=== PATIENT | male | born 1965 | race African-American/Black ===

== ENCOUNTER 2017-08-25 21:26 | Emergency (ER) | payer OTHER ==
[2017-08-25 22:25] LABS: Absolute Lymphocytes (CBC) 3.5 K/uL (0.7-4.9); Absolute Monocytes 0.6 K/uL (0.1-1.3); Absolute Neutrophil 2.8 K/uL (1.8-8.0); Basophils % 0.5 % (0-1.3); Eosinophils % 2.4 % (0-4.4); Hematocrit 40.3 % (39.6-49.0); Lymphocytes % 49.6 % (15.3-44.8); MCH 32.3 pg (27.0-35.0); MCV 93.4 fL (80-100); Monocytes % 8.2 % (3.3-12.3); RBC Red Blood Cell Count 4.32 M/uL (4.33-5.43)
[2017-08-25 22:34] LABS: Protime INR 1.03
[2017-08-25] MEDS ORDERED: ONDANSETRON 4 MG/2 ML VIAL ONE (22:34)
[2017-08-25] MEDS ORDERED: MORPHINE 4 MG/ML SYR ONE (22:34)
[2017-08-25 22:37] LABS: Bicarbonate 27 mEq/L (21-31); Glucose Level 112 mg/dL (65-120); Potassium 3.4 mEq/L (3.6-5.0); Sodium Level 140 mEq/L (135-145)
[2017-08-25] MEDS ORDERED: NA CHLORIDE 0.9% 1,000 ML ONE (22:41)
[2017-08-25 22:43] LABS: ALT/SGPT 22 IU/L (10-60); AST/SGOT 18 IU/L (10-42); Albumin 4.2 g/dL (3.2-5.5); Alkaline Phosphatase 51 IU/L (42-121); BUN Blood Urea Nitrogen 11 mg/dL (6-20); Bilirubin Direct < 0.1 mg/dL (0-0.2); Bilirubin Total 0.8 mg/dL (0.3-1.2); Creatine Phosphokinase 202 IU/L (22-269); Magnesium 1.8 mg/dL (1.8-2.5); Protein, Total 7.3 g/dL (6.0-8.3)
[2017-08-25 22:46] LABS: CKMB Creatine Kinase MB 1.2 ng/ml (0.3-4.0)
[2017-08-25 23:01] LABS: Barbiturates NEGATIVE; Benzodiazepines NEGATIVE; Cocaine NEGATIVE; METHAMPHETAM NEGATIVE; Opiates POSITIVE; Phencyclidine NEGATIVE; THC Cannibis NEGATIVE
[2017-08-25 23:13] LABS: Urine Blood NEGATIVE (NEG); Urine Glucose NEGATIVE (NEG); Urine Protein NEGATIVE (NEG)
[2017-08-26] MEDS ORDERED: POTASSIUM CL SA 10 MEQ TAB PO ONE (00:42)
--- NOTE | 2017-08-26 01:19 | EDPHYS ---
Physician Documentation [facility] Name: Ross Mckeon Age: 51 yrs Sex: Male : 1965 Arrival Date: 08/25/2017 Time: 21:27 Bed 26 Private MD: ED Physician Gamal Delacruz HPI: 08/25 22:04 This 51 yrs old Black Male presents to ER via Ambulatory with complaints of Chest Pain, pkl High Blood Pressure. 22:04 The patient or guardian reports chest pain that is located primarily in the left side pkl chest. Onset: just prior to arrival, 2 hour(s) ago. The pain radiates to the left arm, left neck. Associated signs and symptoms: The patient has no apparent associated signs or symptoms. The chest pain is described as sharp. The patient has not experienced similar symptoms in the past. Historical: - Allergies: 21:45 Soma; rk2 21:45 Suboxone; rk2 21:45 Lodine; rk2 21:45 Dilantin; rk2 - PMHx: 21:45 Seizures; Spinal Stimulator; Hypertension; rk2 - Immunization history:: Pneumococcal vaccine is not up to date, Flu vaccine is up to date. - Social history:: Smoking status: Patient uses tobacco products, smokes one-half pack cigarettes per day. ROS: 22:04 Eyes: Negative for injury, pain, redness, and discharge, ENT: Negative for injury, pkl pain, and discharge, Neck: Negative for injury, pain, and swelling. 22:04 Cardiovascular: Positive for chest pain. 22:04 Respiratory: Negative for cough, shortness of breath. 22:04 Abdomen/GI: Negative for abdominal pain, nausea, vomiting, and diarrhea. 22:04 Back: Negative for acute changes. 22:04 : Negative for urinary symptoms. 22:04 MS/extremity: Negative for acute changes. 22:04 Skin: Negative for rash. 22:04 Neuro: Negative for altered mental status. Exam: 22:04 Head/Face: Normocephalic, atraumatic. Eyes: Pupils equal round and reactive to light, pkl extra-ocular motions intact. Lids and lashes normal. Conjunctiva and sclera are non-icteric and not injected. Cornea within normal limits. Periorbital areas with no swelling, redness, or edema. ENT: Nares patent. No nasal discharge, no septal abnormalities noted. Tympanic membranes are normal and external auditory canals are clear. Oropharynx with no redness, swelling, or masses, exudates, or evidence of obstruction, uvula midline. Mucous membranes moist. Neck: Trachea midline, no thyromegaly or masses palpated, and no cervical lymphadenopathy. Supple, full range of motion without nuchal rigidity, or vertebral point tenderness. No Meningismus. Chest/axilla: Normal chest wall appearance and motion. Nontender with no deformity. No lesions are appreciated. Cardiovascular: Regular rate and rhythm with a normal S1 and S2. No gallops, murmurs, or rubs. Normal PMI, no JVD. No pulse deficits. Respiratory: Lungs have equal breath sounds bilaterally, clear to auscultation and percussion. No rales, rhonchi or wheezes noted. No increased work of breathing, no retractions or nasal flaring. Abdomen/GI: Soft, non-tender, with normal bowel sounds. No distension or tympany. No guarding or rebound. No evidence of tenderness throughout. Back: No spinal tenderness. No costovertebral tenderness. Full range of motion. Skin: Warm, dry with normal turgor. Normal color with no rashes, no lesions, and no evidence of cellulitis. MS/ Extremity: Pulses equal, no cyanosis. Neurovascular intact. Full, normal range of motion. Neuro: Awake and alert, GCS 15, oriented to person, place, time, and situation. Cranial nerves II-XII grossly intact. Motor strength 5/5 in all extremities. Sensory grossly intact. Cerebellar exam normal. Normal gait. Vital Signs: 21:45 BP 145 / 99; Pulse 83; Resp 17; Temp 98.0; Pulse Ox 98% ; Weight 90.72 kg; Height 6 ft. rk2 4 in. (193.04 cm); 23:15 BP 135 / 88; Pulse 70; Resp 17; Pulse Ox 98% on R/A; kr2 23:34 BP 131 / 86; Pulse 71; Resp 17; Pulse Ox 99% on R/A; kr2 08/26 01:18 BP 128 / 82; Pulse 60; Resp 15; Pulse Ox 99% on R/A; kr2 08/25 21:45 Body Mass Index 24.34 (90.72 kg, 193.04 cm) rk2 MDM: 08/25 21:33 Patient medically screened. pkl 08/26 00:20 Data reviewed: vital signs, nurses notes, lab test result(s), EKG, radiologic studies, pkl plain films. 08/25 22:01 Order name: Basic Metabolic Panel pkl 08/25 22:01 Order name: BNP pkl 08/25 22:01 Order name: CBC with Diff pkl 08/25 22:01 Order name: Ckmb pkl 08/25 22:01 Order name: CPK pkl 08/25 22:01 Order name: LFT's pkl 08/25 22:01 Order name: Magnesium pkl 08/25 22:01 Order name: PT-INR pkl 08/25 22:01 Order name: Ptt, Activated pkl 08/25 22:01 Order name: Troponin (emerg Dept Use Only) pkl 08/25 22:01 Order name: UDS pkl 08/25 22:37 Order name: Basic Metabolic Panel; Complete Time: 00:20 EDMS 08/25 22:42 Order name: Protime (+INR); Complete Time: 00:20 EDMS 08/25 22:42 Order name: PTT, Activated Partial Thromb; Complete Time: 00:20 EDMS 08/25 22:01 Order name: XRAY Chest (1 view) pkl 08/25 22:43 Order name: CBC with Automated Diff; Complete Time: 00:20 EDMS 08/25 22:43 Order name: Liver (Hepatic) Function; Complete Time: 00:20 EDMS 08/25 22:43 Order name: Creatine Phosphokinase; Complete Time: 00:20 EDMS 08/25 22:43 Order name: Magnesium; Complete Time: 00:20 EDMS 08/25 22:43 Order name: Troponin (Emerg Dept Use Only); Complete Time: 00:20 EDMS 08/25 22:47 Order name: CKMB Creatine Kinase MB; Complete Time: 00:20 EDMS 08/25 22:47 Order name: BNP B-Type Natriuretic Peptide; Complete Time: 00:20 EDMS 08/25 22:50 Order name: Urine Dipstick--Ancillary (enter results) em1 08/25 23:01 Order name: Urine Drug Screen; Complete Time: 00:20 EDMS 08/25 23:13 Order name: Urine Dipstick-Ancillary; Complete Time: 00:20 EDMS 08/26 00:21 Order name: Troponin (emerg Dept Use Only) pkl 08/26 01:03 Order name: Troponin (Emerg Dept Use Only); Complete Time: 01:06 EDMS 08/25 22:01 Order name: EKG; Complete Time: 22:02 pkl 08/25 22:01 Order name: Cardiac monitoring; Complete Time: 22:43 pkl 08/25 22:01 Order name: EKG - Nurse/Tech; Complete Time: :43 pkl 08/25 22:01 Order name: IV Saline Lock; Complete Time: :43 pkl 08/25 22:01 Order name: Labs collected and sent; Complete Time: : pkl 08/25 22:01 Order name: O2 Per Protocol; Complete Time: :43 pkl 08/25 22:01 Order name: O2 Sat Monitoring; Complete Time: :43 pkl 08/25 22:01 Order name: Urine Dipstick-Ancillary (obtain specimen); Complete Time: 22:49 pkl 08/26 00:21 Order name: EKG; Complete Time: 00:21 pkl Administered Medications: 08/25 22:25 Drug: morphine 2 mg Route: IVP; Site: right antecubital; kr2 08/26 01:26 Follow up: Response: No adverse reaction; Pain is decreased kr2 08/25 22:25 Drug: Zofran 4 mg Route: IVP; Site: right antecubital; kr2 08/26 01:26 Follow up: Response: No adverse reaction kr2 08/25 22:27 Drug: NS 0.9% 1000 ml Route: IV; Rate: 100 ml/hr; Site: right antecubital; kr2 08/26 01:24 Follow up: Response: No adverse reaction; IV Status: Order to discontinue infusion kr2 : Drug: K-Dur 20 mEq Route: PO; kr2 :25 Follow up: Response: No adverse reaction kr2 Disposition: 08/26/17 01:18 Discharged to Home. Impression: Chest pain. - Condition is Stable. - Medication Reconciliation Form, Thank You Letter, Antibiotic Education, Prescription Opioid Use form. - Follow up: Private Physician; When: 2 - 3 days; Reason: Re-evaluation by your physician. - Problem is new. - Symptoms have improved. Signatures: Dispatcher [employer] Gamal Brumfield MD MD pkBernadine Shirley RN RN kr2 Phuong Mendez RN RN rk2
--- NOTE | 2017-08-26 01:19 | ER ---
Nurse's Notes [facility] Name: Ross Mckeon Age: 51 yrs Sex: Male : 1965 Arrival Date: 08/25/2017 Time: 21:27 Bed 26 Private MD: Diagnosis: Chest pain Presentation: 08/25 21:39 Presenting complaint: Patient states: Pt. c/o sudden onset of sharp left sided c/p. rk2 Onset around 1930 tonight. Pain radiates into back and into left side of neck. Onset while \T\ rest. Increased pain with deep inspiration. Denies SOB. Hx of HTN, non compliment with medication. Transition of care: patient was not received from another setting of care. Onset of symptoms was August 25, 2017. Care prior to arrival: None. 21:39 Method Of Arrival: Ambulatory rk2 21:39 Acuity: HELENE 3 rk2 Triage Assessment: 21:45 General: Appears uncomfortable, well groomed, well developed, well nourished, Behavior rk2 is calm, cooperative. Pain: Complains of pain in chest. Neuro: Level of Consciousness is alert, obeys commands, Oriented to person, place, time, situation. Cardiovascular: Rhythm is sinus rhythm. Respiratory: Airway is patent Respiratory effort is even, unlabored, Respiratory pattern is regular, symmetrical. Derm: Skin is pink, warm \T\ dry. Historical: - Allergies: 21:45 Soma; rk2 21:45 Suboxone; rk2 21:45 Lodine; rk2 21:45 Dilantin; rk2 - PMHx: 21:45 Seizures; Spinal Stimulator; Hypertension; rk2 - Immunization history:: Pneumococcal vaccine is not up to date, Flu vaccine is up to date. - Social history:: Smoking status: Patient uses tobacco products, smokes one-half pack cigarettes per day. Screenin:45 Abuse screen: Denies threats or abuse. Denies injuries from another. Nutritional kr2 screening: No deficits noted. Tuberculosis screening: No symptoms or risk factors identified. Fall Risk None identified. Assessment: 21:45 General: Appears in no apparent distress. uncomfortable, slender, well groomed, well kr2 developed, well nourished, Behavior is calm, cooperative, appropriate for age. Pain: Complains of pain in chest Pain does not radiate. Pain currently is 8 out of 10 on a pain scale. Quality of pain is described as pressure, sharp, stabbing, Pain began suddenly, Is continuous. Neuro: Level of Consciousness is awake, alert, obeys commands, Oriented to person, place, time, situation, Appropriate for age. Cardiovascular: Capillary refill < 3 seconds in bilateral fingers Patient's skin is warm and dry. Respiratory: Airway is patent Respiratory effort is even, unlabored, Respiratory pattern is regular, symmetrical. GI: Abdomen is flat, non-distended. : No signs and/or symptoms were reported regarding the genitourinary system. EENT: Oral mucosa is moist. Derm: Skin is intact, is healthy with good turgor, Skin is pink, warm \T\ dry. Musculoskeletal: Circulation, motion, and sensation intact. 23:35 Reassessment: Patient appears in no apparent distress at this time. Patient and/or kr2 family updated on plan of care and expected duration. Pain level reassessed. Patient is alert, oriented x 3, equal unlabored respirations, skin warm/dry/pink. Patient denies pain at this time. Patient states feeling better. 08/26 00:00 Reassessment: Patient appears in no apparent distress at this time. Patient and/or kr2 family updated on plan of care and expected duration. Pain level reassessed. Patient is alert, oriented x 3, equal unlabored respirations, skin warm/dry/pink. Patient states feeling better. Vital Signs: 08/25 21:45 BP 145 / 99; Pulse 83; Resp 17; Temp 98.0; Pulse Ox 98% ; Weight 90.72 kg; Height 6 ft. rk2 4 in. (193.04 cm); 23:15 BP 135 / 88; Pulse 70; Resp 17; Pulse Ox 98% on R/A; kr2 23:34 BP 131 / 86; Pulse 71; Resp 17; Pulse Ox 99% on R/A; kr2 08/26 01:18 BP 128 / 82; Pulse 60; Resp 15; Pulse Ox 99% on R/A; kr2 08/25 21:45 Body Mass Index 24.34 (90.72 kg, 193.04 cm) rk2 ED Course: 08/25 21:27 Patient arrived in ED. al2 21:33 Gamal Delacruz MD is Attending Physician. pkl 21:35 Patient has correct armband on for positive identification. Bed in low position. Call kr2 light in reach. Side rails up X2. Adult w/ patient. travel freight and passenger agent on. Pulse ox on. NIBP on. Door closed. Warm blanket given. Head of bed elevated. 21:43 Triage completed. rk2 21:45 Arm band placed on. kr2 21:47 Bernadine Holliday, RN is Primary Nurse. kr2 21:47 Inserted saline lock: 22 gauge in right antecubital area, using aseptic technique. kr2 Blood collected. Patient maintains SpO2 saturation greater than 95% on room air. 22:20 EKG done, by ED staff, reviewed by Gamal Delacruz MD. dh3 22:24 X-ray completed. Portable x-ray completed in exam room. Patient tolerated procedure kp1 well. 22:45 Urine collected: urinal, clear. 3 08/26 01:00 XRAY Chest (1 view) In Process Unspecified. EDMS 01:17 EKG done, reviewed by Gamal Delacruz MD. kr2 01:24 No provider procedures requiring assistance completed. IV discontinued, intact, kr2 bleeding controlled, No redness/swelling at site. Pressure dressing applied. Administered Medications: 08/25 22:25 Drug: morphine 2 mg Route: IVP; Site: right antecubital; kr2 08/26 01:26 Follow up: Response: No adverse reaction; Pain is decreased kr2 08/25 22:25 Drug: Zofran 4 mg Route: IVP; Site: right antecubital; kr2 08/26 01:26 Follow up: Response: No adverse reaction kr2 08/25 22:27 Drug: NS 0.9% 1000 ml Route: IV; Rate: 100 ml/hr; Site: right antecubital; kr2 08/26 01:24 Follow up: Response: No adverse reaction; IV Status: Order to discontinue infusion kr2 :27 Drug: K-Dur 20 mEq Route: PO; kr2 01:25 Follow up: Response: No adverse reaction kr2 Outcome: 01:18 Discharge ordered by . [email or web address] 01:24 Discharged to home ambulatory, with family. kr2 01:24 Condition: improved 01:24 Discharge instructions given to patient, Instructed on discharge instructions, follow up and referral plans. Demonstrated understanding of instructions, follow-up care. 01:26 Patient left the ED. kr2 Signatures: Dispatcher [employer] Gamal Brumfield MD MD pkl Silva Abdul kp1 Nadine Ramirez 3 Bernadine Holliday RN RN kr2 Brenda Power Rhonda, RN RN rk2
--- NOTE | 2017-08-26 05:01 | EKG ---
Test Date: 2017-08-26 Test Time: 01:15:33 Medical Imaging Specialist: HEIDY MEASUREMENT RESULTS: Intervals: Rate: 62 MS: 150 QRSD: 74 QT: 410 QTc: 416 [place]: P: 59 MS: 150 QRS: 83 T: 47 INTERPRETIVE STATEMENTS: Normal sinus rhythm Possible Left atrial enlargement Nonspecific ST and T wave abnormality Abnormal ECG Compared to ECG 08/25/2017 21:39:23 ST (T wave) deviation now present T-wave abnormality no longer present Electronically Signed On 08-26-17 05:00:48 CDT by Cam Valenzuela
--- NOTE | 2017-08-26 05:02 | EKG ---
Test Date: 2017-08-25 Test Time: 21:39:23 Snow Removal/Plowing: CHAI MEASUREMENT RESULTS: Intervals: Rate: 76 SC: 142 QRSD: 78 QT: 382 QTc: 429 [place]: P: 60 SC: 142 QRS: 79 T: 11 INTERPRETIVE STATEMENTS: Normal sinus rhythm Possible Left atrial enlargement Nonspecific T wave abnormality Abnormal ECG Compared to ECG 04/15/2017 21:31:43 No significant changes Electronically Signed On 08-26-17 05:01:42 CDT by Cam Valenzuela
--- NOTE | 2017-08-26 08:03 | RAD REPORT ---
EXAM DESCRIPTION: RAD - Chest Single View - 08/25/2017 10:25 pm CLINICAL HISTORY: Left-sided chest pain COMPARISON: April 2017 TECHNIQUE: AP portable chest image was obtained 2214 hours . FINDINGS: No focal mass, consolidation or failure. Lung markings are minimally prominent, similar to the prior study. Heart and vasculature are normal. No measurable pleural effusion and no pneumothora x. No gross bony abnormality seen. No acute aortic findings suspected. IMPRESSION: No acute cardiopulmonary process. No significant change from the comparison study.
== END 2017-08-26 01:26 | disposition home or self-care (01) ==
LOC: ER 21:26
DX: R07.9 Chest pain, unspecified (principal); I10 Essential (primary) hypertension; F17.210 Nicotine dependence, cigarettes, uncomplicated; Z88.5 Allergy status to narcotic agent; Z88.6 Allergy status to analgesic agent; Z88.8 Allergy status to other drugs, medicaments and biological substances
CPT/HCPCS: 36415; 71045; 80048; 80076; 80307; 81003; 82550; 82553; 83735; 83880; 84484; 85025; 85610; 85730; 93005; 96361; 96374; 96375; 99285; J2405; J7030

== ENCOUNTER 2017-11-19 17:50 | Emergency (ER) | payer OTHER ==
[2017-11-19] MEDS ORDERED: HYDROCODONE/APAP 10/325 TAB ONE (18:37)
--- NOTE | 2017-11-19 19:17 | RAD REPORT ---
EXAM DESCRIPTION: CT - Head Brain Wo Cont - 11/19/2017 7:02 pm CLINICAL HISTORY: Head injury status post fall COMPARISON: None. TECHNIQUE: Computed axial tomography of the head was obtained. IV contrast was not requested. All CT scans are performed using dose optimization technique as appropriate and may include automated exposure control or mA/KV adjustment according to patient size. FINDINGS: An intracranial bleed is not seen . The ventricles are normal in caliber. No extra-axial fluid collection is noted. Fluid within the sinuses/ mastoids is not seen. IMPRESSION: No acute intracranial abnormality is seen.
--- NOTE | 2017-11-19 19:22 | RAD REPORT ---
EXAM DESCRIPTION: RAD - Hip Right 2 View - 11/19/2017 6:51 pm CLINICAL HISTORY: Right hip pain FINDINGS: No fracture or dislocation is seen.
--- NOTE | 2017-11-19 19:23 | RAD REPORT ---
EXAM DESCRIPTION: RAD - Hip Left 2 View - 11/19/2017 6:51 pm CLINICAL HISTORY: Left hip pain status post injury FINDINGS: No fracture or dislocation is seen.
--- NOTE | 2017-11-19 19:24 | RAD REPORT ---
EXAM DESCRIPTION: RAD - Elbow Left 2 View - 11/19/2017 6:59 pm CLINICAL HISTORY: Left elbow pain status fall. FINDINGS: No fracture or dislocation is seen.
--- NOTE | 2017-11-19 19:24 | RAD REPORT ---
EXAM DESCRIPTION: RAD - Elbow Right 2 View - 11/19/2017 6:59 pm CLINICAL HISTORY: Right elbow pain status post fall FINDINGS: No fracture or dislocation is seen.
--- NOTE | 2017-11-19 19:38 | ER ---
Nurse's Notes [facility] Name: Ross Mckeon Age: 52 yrs Sex: Male : 1965 Arrival Date: 11/19/2017 Time: 17:52 Bed 28 Private MD: Out, [facility] Diagnosis: Contusion of left elbow;Contusion of right elbow;Pain in left hip;Pain in right hip Presentation: 11/19 17:55 Presenting complaint: Patient states: "I tripped and fell the RV steps and hurt both of aa5 my shoulders and hit my head on the metal steps". Denies LOC. Pt c/o pain to jonelle shoulders, jonelle elbows, and jonelle hips. Care prior to arrival: None. Mechanism of Injury: Fall. Trauma event details: Injury occurred: November 19, 2017. 17:55 Acuity: HELENE 4 aa5 17:55 Method Of Arrival: [facility] 19:11 Transition of care: patient was not received from another setting of care. Onset of rk2 symptoms was November 19, 2017. Risk Assessment: Do you want to hurt yourself or someone else? Patient reports no desire to harm self or others. Initial Sepsis Screen: Does the patient meet any 2 criteria? No. Patient's initial sepsis screen is negative. Does the patient have a suspected source of infection? No. Patient's initial sepsis screen is negative. Triage Assessment: 19:08 General: Appears in no apparent distress. slender, well groomed, well developed, well rk2 nourished, Behavior is calm, cooperative. Pain:. Neuro: Level of Consciousness is alert, obeys commands, Oriented to person, place, time, situation. Respiratory: Airway is patent Respiratory effort is even, unlabored, Respiratory pattern is regular, symmetrical. Derm: Skin is pink, warm \\T\\ dry. Historical: - Allergies: 17:57 Dilantin; aa5 17:57 Lodine; aa5 17:57 Soma; aa5 17:57 Suboxone; aa5 - PMHx: 17:57 Hypertension; Seizures; Spinal Stimulator; aa5 - Immunization history:: Adult Immunizations up to date. - Social history:: Smoking status: Patient uses tobacco products, smokes one-half pack cigarettes per day. - Ebola Screening: : No symptoms or risks identified at this time. - Family history:: not pertinent. - Hospitalizations: : No recent hospitalization is reported. Screenin:07 Abuse screen: Denies threats or abuse. Nutritional screening: No deficits noted. rk2 Tuberculosis screening: No symptoms or risk factors identified. Fall Risk None identified. Assessment: 19:06 Reassessment: Returned from radiology. rk2 Vital Signs: 17:57 BP 126 / 91; Pulse 97; Resp 16 S; Temp 97.9(TE); Pulse Ox 97% on R/A; Weight 91.63 kg aa5 (R); Height 6 ft. 4 in. (193.04 cm) (R); Pain 9/10; 17:57 Body Mass Index 24.59 (91.63 kg, 193.04 cm) aa5 ED Course: 17:52 Patient arrived in ED. sb2 17:53 Out, [facility] is Private Physician. sb2 17:57 Triage completed. aa5 17:57 Arm band placed on. aa5 17:59 Phuong Mendez RN is Primary Nurse. rk2 18:09 Elijah Hagan MD is Attending Physician. rn 18:32 XRAY Hip RIGHT 2 view Sent. rk2 18:32 XRAY Hip LEFT 2 view Sent. rk2 18:32 XRAY Elbow RIGHT 2 view Sent. rk2 18:32 XRAY Elbow LEFT 2 view Sent. rk2 18:32 CT Head Brain wo Cont Sent. rk2 18:37 Patient moved to radiology via wheelchair. kc2 18:50 X-ray completed. Patient tolerated procedure well. Patient moved to CT via wheelchair. kc2 18:51 XRAY Elbow LEFT 2 view In Process Unspecified. EDMS 18:52 XRAY Elbow RIGHT 2 view In Process Unspecified. EDMS 18:52 XRAY Hip LEFT 2 view In Process Unspecified. EDMS 18:52 XRAY Hip RIGHT 2 view In Process Unspecified. EDMS 19:[address] kw1 19:02 CT Head Brain wo Cont In Process Unspecified. EDMS 19:07 Patient has correct armband on for positive identification. Bed in low position. Call rk2 light in reach. 19:48 No provider procedures requiring assistance completed. Patient did not have IV access rk2 during this emergency room visit. Administered Medications: 19:25 Drug: [place] 10 mg-325 mg 1 tabs Route: PO; rk2 19:47 Follow up: Response: No adverse reaction rk2 Outcome: 19:37 Discharge ordered by . rn 19:48 Discharged to home ambulatory. rk2 19:48 Condition: good 19:48 Discharge instructions given to patient. 19:49 Patient left the ED. rk2 Signatures: Dispatcher [employer] EDMS Elijah Hagan MD MD rn Calderon, RADHA Ruelas RN [id number] Tabitha Phillips kc2 Monica Donovan kw1 Phuong Mendez RN RN rk2 Lilian Sosa sb2
--- NOTE | 2017-11-19 19:38 | EDPHYS ---
Physician Documentation [facility] Name: Ross Mckeon Age: 52 yrs Sex: Male : 1965 Arrival Date: 11/19/2017 Time: 17:52 Bed 28 Private MD: Out, [facility] ED Physician Elijah Hagan HPI: 11/19 18:47 This 52 yrs old Black Male presents to ER via Ambulatory with complaints of Fall Injury.rn 18:47 Details of fall: The patient fell from a height, down approximately 3 stairs. Onset: rn The symptoms/episode began/occurred just prior to arrival. Associated injuries: The patient sustained elbows and hips. Severity of symptoms: At their worst the symptoms were mild, in the emergency department the symptoms are unchanged. The patient has not experienced similar symptoms in the past. Reports accidentally slipped down steps from RV, doesn't recall hitting head but has slight headache, reports more pain in elbows and hips, no LOC, went to CT clinic who evaluated him and sent him here for ct head. Ambulatory. . Historical: - Allergies: 17:57 Dilantin; aa5 17:57 Lodine; aa5 17:57 Soma; aa5 17:57 Suboxone; aa5 - PMHx: 17:57 Hypertension; Seizures; Spinal Stimulator; aa5 - Immunization history:: Adult Immunizations up to date. - Social history:: Smoking status: Patient uses tobacco products, smokes one-half pack cigarettes per day. - Ebola Screening: : No symptoms or risks identified at this time. - Family history:: not pertinent. - Hospitalizations: : No recent hospitalization is reported. ROS: 18:47 Constitutional: Negative for fever, chills, and weight loss, Eyes: Negative for injury, rn pain, redness, and discharge, Neck: Negative for injury, pain, and swelling, Cardiovascular: Negative for chest pain, palpitations, and edema, Respiratory: Negative for shortness of breath, cough, wheezing, and pleuritic chest pain, Abdomen/GI: Negative for abdominal pain, nausea, vomiting, diarrhea, and constipation, MS/Extremity: + injury and pain to elbows and hips Skin: Negative for injury, rash, and discoloration, Neuro: Negative for weakness, numbness, tingling, and seizure. Exam: 18:47 Constitutional: This is a well developed, well nourished patient who is awake, alert, rn and in no acute distress. Head/Face: Normocephalic, atraumatic. Eyes: Pupils equal round and reactive to light, extra-ocular motions intact. Lids and lashes normal. Conjunctiva and sclera are non-icteric and not injected. Cornea within normal limits. Periorbital areas with no swelling, redness, or edema. Neck: Trachea midline, no thyromegaly or masses palpated, and no cervical lymphadenopathy. Supple, full range of motion without nuchal rigidity, or vertebral point tenderness. No Meningismus. Chest/axilla: Normal chest wall appearance and motion. Nontender with no deformity. No lesions are appreciated. Abdomen/GI: Soft, non-tender, with normal bowel sounds. No distension or tympany. No guarding or rebound. No evidence of tenderness throughout. Back: No spinal tenderness. No costovertebral tenderness. Full range of motion. MS/ Extremity: Pulses equal, no cyanosis. Neurovascular intact. Full, normal range of motion. Equal circumference. Able to undress himself with injured arms, mild abrasions to right elbow, no bleeding. Ambulatory. Neuro: Awake and alert, GCS 15, oriented to person, place, time, and situation. Cranial nerves II-XII grossly intact. Motor strength 5/5 in all extremities. Sensory grossly intact. Cerebellar exam normal. Normal gait. Vital Signs: 17:57 BP 126 / 91; Pulse 97; Resp 16 S; Temp 97.9(TE); Pulse Ox 97% on R/A; Weight 91.63 kg aa5 (R); Height 6 ft. 4 in. (193.04 cm) (R); Pain 9/10; 17:57 Body Mass Index 24.59 (91.63 kg, 193.04 cm) aa5 MDM: 18:09 Patient medically screened. rn 19:36 Differential diagnosis: abrasion, closed head injury, contusion, fracture, sprain, rn strain. Data reviewed: vital signs, nurses notes, radiologic studies, CT scan, plain films, and as a result, I will discharge patient. Counseling: I had a detailed discussion with the patient and/or guardian regarding: the historical points, exam findings, and any diagnostic results supporting the discharge/admit diagnosis. 19:36 Special discussion: I discussed with the patient/guardian in detail that at this point rn there is no indication for admission to the hospital. It is understood, however, that if the symptoms persist or worsen the patient needs to return immediately for re-evaluation. 11/19 18:16 Order name: CT Head Brain wo Cont; Complete Time: 19:36 rn 11/19 18:16 Order name: XRAY Elbow LEFT 2 view; Complete Time: 19:36 rn 11/19 18:16 Order name: XRAY Elbow RIGHT 2 view; Complete Time: 19:36 rn 11/19 18:16 Order name: XRAY Hip LEFT 2 view; Complete Time: 19:36 rn 11/19 18:16 Order name: XRAY Hip RIGHT 2 view; Complete Time: 19:36 rn Administered Medications: 19:25 Drug: [place] 10 mg-325 mg 1 tabs Route: PO; rk2 19:47 Follow up: Response: No adverse reaction rk2 Disposition: 11/19/17 19:37 Discharged to Home. Impression: Contusion of left elbow, Contusion of right elbow, Pain in left hip, Pain in right hip. - Condition is Stable. - Discharge Instructions: Arthralgia, Musculoskeletal Pain, Elbow Contusion, Hip Pain. - Medication Reconciliation Form, Thank You Letter, Antibiotic Education, Prescription Opioid Use form. - Follow up: Private Physician; When: As needed; Reason: Recheck today's complaints, Re-evaluation by your physician. - Problem is new. - Symptoms have improved. Signatures: Dispatcher [employer] EDMS Elijah Hagan MD MD rn Calderon, Audri, RN RN aa5 Phuong Mendez RN RN rk2 Corrections: (The following items were deleted from the chart) 19:49 19:37 11/19/2017 19:37 Discharged to Home. Impression: Contusion of left elbow; rk2 Contusion of right elbow; Pain in left hip; Pain in right hip. Condition is Stable. Forms are Medication Reconciliation Form, Thank You Letter, Antibiotic Education, Prescription Opioid Use. Follow up: Private Physician; When: As needed; Reason: Recheck today's complaints, Re-evaluation by your physician. Problem is new. Symptoms have improved. rn
== END 2017-11-19 19:49 | disposition home or self-care (01) ==
LOC: ER 17:50
DX: S50.02XA Contusion of left elbow, initial encounter (principal); S50.01XA Contusion of right elbow, initial encounter; M25.552 Pain in left hip; M25.551 Pain in right hip; W10.9XXA Fall (on) (from) unspecified stairs and steps, initial encounter; Y93.89 Activity, other specified; Y92.9 Unspecified place or not applicable; Z88.5 Allergy status to narcotic agent; Z88.8 Allergy status to other drugs, medicaments and biological substances; I10 Essential (primary) hypertension; F17.210 Nicotine dependence, cigarettes, uncomplicated
CPT/HCPCS: 70450; 99284

== ENCOUNTER 2020-02-22 23:41 | Observation (INO) | payer OTHER ==
[2020-02-23 00:18] LABS: Protime INR 0.91
[2020-02-23 00:23] LABS: Absolute Lymphocytes (CBC) 3.6 K/uL (0.7-4.9); Basophils % 1.5 % (0-1.3); Hematocrit 37.4 % (39.6-49.0); Lymphocytes % 51.4 % (15.3-44.8); MPV 9.4 fL (7.6-11.3); RBC Red Blood Cell Count 4.02 M/uL (4.33-5.43)
[2020-02-23 00:32] LABS: ALT/SGPT 46 U/L (12-78); AST/SGOT 30 U/L (15-37); Albumin 3.6 g/dL (3.4-5.0); Alkaline Phosphatase 66 U/L (45-117); BUN Blood Urea Nitrogen 10 mg/dL (7-18); Bicarbonate 28 mmol/L (21-32); Bilirubin Direct < 0.1 mg/dL (0-0.2); Bilirubin Total 0.3 mg/dL (0.2-1.0); Glucose Level 122 mg/dL (74-106); Magnesium 1.5 mg/dL (1.8-2.4); Potassium 3.5 mmol/L (3.5-5.1); Protein, Total 6.9 g/dL (6.4-8.2); Sodium Level 141 mmol/L (136-145); Troponin (Emerg Dept Use Only) < 0.02 ng/mL (0.0-0.045)
[2020-02-23] MEDS ORDERED: MORPHINE 4 MG/ML SYR ONE (00:38)
[2020-02-23] MEDS ORDERED: ONDANSETRON 4 MG/2 ML VIAL ONE (00:38)
[2020-02-23 00:51] LABS: Blood Morphology Comment NOT SEEN (NOT SEEN); Platelet Estimate ADEQ
[2020-02-23 00:53] LABS: NT PRO-BNP < 5 pg/mL (<125)
--- NOTE | 2020-02-23 03:27 | ER ---
Nurse's Notes [facility] Name: Ross Mckeon Age: 54 yrs Sex: Male : 1965 Arrival Date: 02/22/2020 Time: 23:42 Bed 4 Private MD: Diagnosis: Other chest pain Presentation: 02/21 23:45 Chief complaint: Patient states: he has been having chest pain for the last 2 nights bb worsening tonight he also is having pain in his right knee starting this evening. Coronavirus screen: At this time, the client does not indicate any symptoms associated with coronavirus-19. Ebola Screen: No symptoms or risks identified at this time. 23:45 Method Of Arrival: Ambulatory bb 23:50 Initial Sepsis Screen: Does the patient meet any 2 criteria? No. Patient's initial bb sepsis screen is negative. Does the patient have a suspected source of infection? No. Patient's initial sepsis screen is negative. Risk Assessment: Do you want to hurt yourself or someone else? Patient reports no desire to harm self or others. Onset of symptoms was February 20, 2020. 23:50 Acuity: HELENE 3 bb Historical: - Allergies: 02/22 00:11 Dilantin; bb 00:11 Lodine; bb 00:11 Soma; bb 00:11 Suboxone; bb 00:11 butrains; bb - Home Meds: 00:11 Lyrica Oral [Active]; [place] 10-325 mg Oral tab [Active]; Oxycodone HCl Oral [Active]; bb Zanaflex Oral [Active]; Relafen Oral [Active]; oxybutynin chloride Oral [Active]; - PMHx: 00:11 Hypertension; Seizures; Spinal Stimulator; bb - Immunization history:: Adult Immunizations unknown. - Social history:: Smoking status: unknown. Screenin:15 Abuse screen: Denies threats or abuse. Denies injuries from another. Nutritional mg2 screening: No deficits noted. Tuberculosis screening: No symptoms or risk factors identified. Fall Risk IV access (20 points). Assessment: 00:15 General: Appears in no apparent distress. comfortable, Behavior is calm, cooperative. mg2 Pain: Complains of pain in chest Neuro: Level of Consciousness is awake, alert, obeys commands, Oriented to person, place, time, situation. Cardiovascular: Capillary refill < 3 seconds Patient's skin is warm and dry. Respiratory: Airway is patent. GI: No signs and/or symptoms were reported involving the gastrointestinal system. : No signs and/or symptoms were reported regarding the genitourinary system. Derm: Skin is intact, is healthy with good turgor, Skin is pink, warm \T\ dry. normal. 00:16 Pain: Pain began suddenly. mg2 01:38 Reassessment: Patient appears in no apparent distress at this time. Patient and/or mg2 family updated on plan of care and expected duration. Pain level reassessed. Patient is alert, oriented x 3, equal unlabored respirations, skin warm/dry/pink. 02:34 Reassessment: patient in CT scan now. mg2 Vital Signs: 02/21 23:50 BP 126 / 88; Pulse 78; Resp 16 S; Temp 98.7(O); Pulse Ox 95% on R/A; Weight 99.79 kg bb (R); Height 6 ft. 4 in. (193.04 cm) (R); Pain 9/10; 02/22 01:38 BP 104 / 81; Pulse 79; Resp 18; Pulse Ox 98% on R/A; mg2 02:49 BP 117 / 85; Pulse 76; Resp 17; Pulse Ox 97% ; rv 03:36 BP 117 / 73; Pulse 75; Resp 14; Pulse Ox 99% on R/A; rv 02/21 23:50 Body Mass Index 26.78 (99.79 kg, 193.04 cm) bb ED Course: 02/21 23:42 Patient arrived in ED. cl3 23:45 Arm band placed on Patient placed in an exam room, on a stretcher, on immersion metalcleaner, bb on pulse oximetry. EKG completed in triage. Results shown to MD. 23:45 Patient has correct armband on for positive identification. director of partnerships on. Pulse rv ox on. NIBP on. 23:51 Javier Mata MD is Attending Physician. tw4 23:55 Farhad Delgado, RADHA is Primary Nurse. mg2 23:56 EKG done, by ED staff, reviewed by Javier Mata MD. ar5 02/22 00:03 Initial lab(s) drawn, by sd, sent to lab. Inserted saline lock: 20 gauge in right rv antecubital area, using aseptic technique. Blood collected. 00:09 Triage completed. bb 00:15 No provider procedures requiring assistance completed. Patient maintains SpO2 mg2 saturation greater than 95% on room air. 00:20 XRAY Chest (1 view) In Process Unspecified. EDMS 02:45 CT Chest Angio In Process Unspecified. EDMS 02:48 Awaiting radiology results. Patient moved back from CT. rv 03:25 Mert Olmos MD is Hospitalizing Provider. tw4 04:25 IV is patent, with fluids infusing freely, with good blood return, Patient admitted, IV rv remains in place. Administered Medications: 00:34 Drug: morphine 4 mg Route: IVP; Site: right antecubital; mg2 01:39 Follow up: Response: No adverse reaction; Marked relief of symptoms; RASS: Alert and mg2 Calm (0) 00:35 Drug: Zofran (Ondansetron) 4 mg Route: IVP; Site: right antecubital; mg2 01:39 Follow up: Response: No adverse reaction; Marked relief of symptoms mg2 Outcome: 03:26 Decision to Hospitalize by Provider. tw4 04:25 Condition: good rv 04:28 Admitted to Tele accompanied by nurse, via wheelchair, room 408, with chart, Report rv called to SADIQ GARCIA 04:28 Instructed on the need for admit. 04:28 Patient left the ED. rv Signatures: Dispatcher [employer] Hayde Weston, RN RN bb Javier Mata MD MD tw4 Farhad Delgado RN RN mg2 Lane Turner RN RN rv Rocío Streeter ar5 Shilo Hanks cl3 Corrections: (The following items were deleted from the chart) 02:50 02:48 BP 141 / 96; Pulse 88bpm; Resp 17bpm; Pulse Ox 100% RA; rv rv
--- NOTE | 2020-02-23 03:27 | EDPHYS ---
Physician Documentation [facility] Name: Ross Mckeon Age: 54 yrs Sex: Male : 1965 Arrival Date: 02/22/2020 Time: 23:42 Bed 4 Private MD: ED Physician Javier Mata HPI: 02/22 03:42 This 54 yrs old Black Male presents to ER via Ambulatory with complaints of Chest Pain. tw4 03:43 The patient or guardian reports chest pain that is located primarily in the anterior tw4 chest wall. Onset: today. The pain does not radiate. Associated signs and symptoms: The patient has no apparent associated signs or symptoms. The chest pain is described as dull. Modifying factors: The symptoms are alleviated by nothing. the symptoms are aggravated by nothing. Severity of pain: At its worst the pain was moderate in the emergency department the pain is unchanged. Historical: - Allergies: 00:11 Dilantin; bb 00:11 Lodine; bb 00:11 Soma; bb 00:11 Suboxone; bb 00:11 butrains; bb - Home Meds: 00:11 Lyrica Oral [Active]; [place] 10-325 mg Oral tab [Active]; Oxycodone HCl Oral [Active]; bb Zanaflex Oral [Active]; Relafen Oral [Active]; oxybutynin chloride Oral [Active]; - PMHx: 00:11 Hypertension; Seizures; Spinal Stimulator; bb - Immunization history:: Adult Immunizations unknown. - Social history:: Smoking status: unknown. ROS: 03:43 Constitutional: Negative for fever, chills, and weight loss, Eyes: Negative for injury, tw4 pain, redness, and discharge, Respiratory: Negative for shortness of breath, cough, wheezing, and pleuritic chest pain, Abdomen/GI: Negative for abdominal pain, nausea, vomiting, diarrhea, and constipation, Back: Negative for injury and pain, MS/Extremity: Negative for injury and deformity, Skin: Negative for injury, rash, and discoloration, Neuro: Negative for headache, weakness, numbness, tingling, and seizure. 03:43 Cardiovascular: Positive for chest pain, Negative for edema, orthopnea, palpitations, paroxysmal nocturnal dyspnea. Exam: 03:42 Constitutional: This is a well developed, well nourished patient who is awake, alert, tw4 and in no acute distress. Head/Face: Normocephalic, atraumatic. Chest/axilla: Normal chest wall appearance and motion. Nontender with no deformity. No lesions are appreciated. Cardiovascular: Regular rate and rhythm with a normal S1 and S2. No gallops, murmurs, or rubs. Normal PMI, no JVD. No pulse deficits. Respiratory: Lungs have equal breath sounds bilaterally, clear to auscultation and percussion. No rales, rhonchi or wheezes noted. No increased work of breathing, no retractions or nasal flaring. Abdomen/GI: Soft, non-tender, with normal bowel sounds. No distension or tympany. No guarding or rebound. No evidence of tenderness throughout. Back: No spinal tenderness. No costovertebral tenderness. Full range of motion. MS/ Extremity: Pulses equal, no cyanosis. Neurovascular intact. Full, normal range of motion. Neuro: Awake and alert, GCS 15, oriented to person, place, time, and situation. Cranial nerves II-XII grossly intact. Motor strength 5/5 in all extremities. Sensory grossly intact. Cerebellar exam normal. Normal gait. Vital Signs: 02/21 23:50 BP 126 / 88; Pulse 78; Resp 16 S; Temp 98.7(O); Pulse Ox 95% on R/A; Weight 99.79 kg bb (R); Height 6 ft. 4 in. (193.04 cm) (R); Pain 9/10; 02/22 01:38 BP 104 / 81; Pulse 79; Resp 18; Pulse Ox 98% on R/A; mg2 02:49 BP 117 / 85; Pulse 76; Resp 17; Pulse Ox 97% ; rv 03:36 BP 117 / 73; Pulse 75; Resp 14; Pulse Ox 99% on R/A; rv 02/21 23:50 Body Mass Index 26.78 (99.79 kg, 193.04 cm) bb MDM: 02/21 23:58 Patient medically screened. tw4 02/22 03:43 Differential diagnosis: pulmonary embolus, thoracic aortic disection. HEART Score: tw4 History: Moderately Suspicious (1), ECG: Non specific repolarization disturbance / LBTB / PM (1), Age: > 45 and < 65 years (1), Risk Factors: 1 or 2 risk factors (1), Troponin: < or = 1 x Normal Limit (0), Total Score = 4. Data reviewed: vital signs, nurses notes. Data interpreted: Pulse oximetry: Interpretation: normal. Counseling: I had a detailed discussion with the patient and/or guardian regarding: the historical points, exam findings, and any diagnostic results supporting the discharge/admit diagnosis, lab results, radiology results. Physician consultation: Luiz COWAN regarding admission, to the telemetry unit. patient's condition, and will see patient. 02/21 23:52 Order name: Basic Metabolic Panel; Complete Time: : tw02/21 23:52 Order name: CBC with Diff; Complete Time: :02/21 23:52 Order name: LFT's; Complete Time: :02/21 23:52 Order name: Magnesium; Complete Time: : tw02/21 23:52 Order name: NT PRO-BNP; Complete Time: :02/21 23:52 Order name: PT-INR; Complete Time: : 02/21 23:52 Order name: Troponin (emerg Dept Use Only); Complete Time: : 02/21 23:52 Order name: XRAY Chest (1 view) [facility] 02/21 23:52 Order name: EKG; Complete Time: 23:53 [facility] 02/22 00:26 Order name: Manual Differential; Complete Time: 01: [facility] 02/22 01:15 Order name: CT Chest Angio [facility] 02/22 04:01 Order name: CONS Physician Consult [facility] 02/21 23:52 Order name: Cardiac monitoring; Complete Time: 00:02 02/21 23:52 Order name: EKG - Nurse/Tech; Complete Time: 00:02 [facility] 02/21 23:52 Order name: IV Saline Lock; Complete Time: 00:02 [facility] 02/21 23:52 Order name: Labs collected and sent; Complete Time: 00:02 02/21 23:52 Order name: O2 Per Protocol; Complete Time: 00:03 [facility] 02/21 23:52 Order name: O2 Sat Monitoring; Complete Time: 00:03 EC:42 Rate is 79 beats/min. Rhythm is regular. QRS [place] is Normal. [place] interval is normal. QRS tw4 interval is normal. QT interval is normal. No Q waves. T waves are Inverted. No ST changes noted. Clinical impression: NSR w/ Non-specific ST/T Changes. Interpreted by me. Reviewed by me. Administered Medications: 00:34 Drug: morphine 4 mg Route: IVP; Site: right antecubital; mg2 01:39 Follow up: Response: No adverse reaction; Marked relief of symptoms; RASS: Alert and mg2 Calm (0) 00:35 Drug: Zofran (Ondansetron) 4 mg Route: IVP; Site: right antecubital; mg2 01:39 Follow up: Response: No adverse reaction; Marked relief of symptoms mg2 Disposition: 02/23/20 03:26 Hospitalization ordered by Mert Olmos for Observation. Preliminary diagnosis is Other chest pain. - Bed requested for Telemetry/MedSurg (observation). - Status is Observation. rv - Condition is Stable. - Problem is new. - Symptoms have improved. Signatures: Dispatcher [employer] EDHayde Marie RN RN bb Lory Greene RN RN Javier Mata MD MD tw4 Farhad Delgado RN RN mg2 Lane Turner RN RN rv Corrections: (The following items were deleted from the chart) 04:14 03:26 Hospitalization Ordered by Mert Olmos MD for Observation. Preliminary cg diagnosis is Other chest pain. Bed requested for Telemetry/MedSurg (observation). Status is Observation. Condition is Stable. Problem is new. Symptoms have improved. tw4 04:28 04:14 02/23/2020 03:26 Hospitalization Ordered by Mert Olmos MD for Observation. rv Preliminary diagnosis is Other chest pain. Bed requested for Telemetry/MedSurg (observation). Status is Observation. Condition is Stable. Problem is new. Symptoms have improved. cg
--- NOTE | 2020-02-23 04:11 | P.HP ---
Certification for Inpatient Patient admitted to: Observation With expected LOS: <2 Midnights Patient will require the following post-hospital care: None Practitioner: I am a practitioner with admitting privileges, knowledge of patient current condition, hospital course, and medical plan of care. Services: Services provided to patient in accordance with Admission requirements found in Title 42 Section 412.3 of the Code of Federal Regulations <Luiz Ram - Last Filed: 02/23/20 04:05> Patient History Date of Service: 02/23/20 Reason for admission: chest pain History of Present Illness: 54-year-old male with a past medical history of essential hypertension, seizures and spinal fusion with spinal stimulator in place presents to the emergency room complaining of chest pain. Patient states the chest pain started 2 days ago and has not improved. States that it does not improve with anything and does not worsen with anything. Denies a history of chest pain. In the emergency room patient is alert and oriented x3. In no distress. Continues with the same chest pain. Describes it as a stabbing pain across the chest. Emergency room blood work shows troponin of less than 0.02 x1, magnesium of 1.5, blood glucose of 122, creatinine of 1.3 with a GFR of 69. Patient denies any history of diabetes. States that he takes hydralazine 25 mg daily for blood pressure control. CT of the chest showed no dissection or acute pathology per preliminary report. EKG was unremarkable. Patient has not seen a noc technician. Patient with placed in observation and further evaluated. Home medications list reviewed: No - Past Medical/Surgical History -: Essential hypertension -: Seizures -: Spinal fusion with spinal stimulator in place -: Lithotripsy -: Kidney stone removal Psychosocial/ Personal History: Lives at home with . - Family History Family History: Reviewed- Non-Contributory - Social History Smoking Status: Current every day smoker Counseled patient to stop smoking for: more than 10 minutes Smoking therapy provided: No Patient receptive to therapy: Yes Alcohol use: No CD- Drugs: No Caffeine use: No Place of Residence: Home <TresmithharvinderLuiz - Last Filed: 02/23/20 04:05> Date of Service: 02/23/20 <Mert Olmos - Last Filed: 02/23/20 13:42> Allergies buprenorphine [From Suboxone] Allergy (Verified 02/23/20 04:52) Nausea/Vomiting carisoprodol [From Soma] Allergy (Verified 02/23/20 04:52) Unknown codeine Allergy (Unverified 03/25/17 19:44) Unknown meperidine [From Demerol] Allergy (Unverified 04/10/17 22:41) Unknown naloxone [From Suboxone] Allergy (Verified 02/23/20 04:52) Nausea/Vomiting phenytoin [From Dilantin] Allergy (Verified 02/23/20 04:52) Itching/Hives/Rash [place] Allergy (Uncoded 04/16/17 00:25) Unknown Lodin Allergy (Uncoded 02/23/20 04:52) Unknown Review of Systems General: As per HPI Eyes: Unremarkable ENT: Unremarkable Respiratory: Unremarkable Cardiovascular: Chest Pain, As per HPI Gastrointestinal: Unremarkable Genitourinary: Unremarkable Musculoskeletal: Unremarkable Integumentary: Unremarkable Neurological: Unremarkable Lymphatics: Unremarkable <Luiz Ram - Last Filed: 02/23/20 04:05> Physical Examination - Vital Signs Temperature: 98.7 F Blood Pressure: 126/88 Pulse: 78 Respirations: 16 Pulse Ox (%): 95 (RA) - Physical Exam General: Alert, In no apparent distress, Oriented x3 HEENT: Atraumatic, Normocephalic, PERRLA, Mucous membr. moist/pink Neck: Supple, JVD not distended, No Thyromegaly, Other (Trachea midline) Respiratory: Clear to auscultation bilaterally, Normal air movement Cardiovascular: No edema, Normal pulses, Regular rate/rhythm Capillary refill: <2 Seconds Gastrointestinal: Normal bowel sounds, Soft and benign, Non-distended Musculoskeletal: No clubbing, No swelling, No contractures, No erythema, No tenderness Integumentary: No rashes, No breakdown, No significant lesion, No tend erness/swelling Neurological: Normal gait, Normal speech, Normal strength at 5/5 x4 extr, Normal tone - Studies Laboratory Data (last 24 hrs) 02/22/20 23:59: PT 10.8, INR 0.91 02/22/20 23:59: WBC 7.0, Hgb 12.9 L, Hct 37.4 L, Plt Count 213 02/22/20 23:59: Sodium 141, Potassium 3.5, BUN 10, Creatinine 1.32 H, Glucose 122 H, Magnesium 1.5 L, Total Bilirubin 0.3, AST 30, ALT 46, Alkaline Phosphatase 66 <Luiz Ram - Last Filed: 02/23/20 04:05> - Studies Laboratory Data (last 24 hrs) 02/22/20 23:59: PT 10.8, INR 0.91 02/22/20 23:59: WBC 7.0, Hgb 12.9 L, Hct 37.4 L, Plt Count 213 02/22/20 23:59: Sodium 141, Potassium 3.5, BUN 10, Creatinine 1.32 H, Glucose 122 H, Magnesium 1.5 L, Total Bilirubin 0.3, AST 30, ALT 46, Alkaline Phosphatase 66 <Mert Olmos - Last Filed: 02/23/20 13:42> Assessment and Plan - Plan Impression: Chest pain/angina: Acute kidney injury: Essential hypertension: Plan: Chest pain/angina: Troponin of 0.02 x 1. Will continue to trend. EKG unremarkable. Chest CT with no acute pathology. No dissection per preliminary report. Will consult Cardiology. Will order echocardiogram. Continuous telemetry. Monitor Acute kidney injury: Denies any history of diabetes mellitus. Continue to monitor creatinine. Will order a hemoglobin A1c due to a slightly elevated blood glucose on admission. Will hold off on starting IV fluids due to chest pain. Essential hypertension: Will resume all medication of hydrochlorothiazide 25 mg daily. Monitor blood pressure. Discharge Plan: Home Plan to discharge in: 48 Hours - Advance Directives Does patient have a Living Will: No Does patient have a Durable POA for Healthcare: No - Code Status/Comfort Care Code Status Assessed: Yes Time Spent Managing Pts Care (In Minutes): 55 <Luiz Ram - Last Filed: 02/23/20 04:05> Date of Service: 02/23/20 Agree with above findings. Patient's plan of care was to be ruled out for acute coronary syndrome and further cardiac workup per Cardiology. However, patient decided to leave against medical advice. <Mert Olmos - Last Filed: 02/23/20 13:42>
[2020-02-23 04:17] VITALS: BP 126/88; TEMP 98.7
[2020-02-23 04:50] LABS: HDL Cholesterol 29 mg/dL (40-60)
[2020-02-23 04:52] VITALS: O2SAT 99
[2020-02-23] MEDS ORDERED: POTASSIUM CL SA 10 MEQ TAB PO ONE (04:59)
[2020-02-23] MEDS ORDERED: Magnesium Sulfate 2gm IVPB 2 G/50 ML BAG IV ONE (05:00)
[2020-02-23 05:13] LABS: LDL, Direct 126 mg/dL (100-129)
--- NOTE | 2020-02-23 07:15 | RAD REPORT ---
EXAM DESCRIPTION: RAD - Chest Single View - 02/23/2020 12:19 am CLINICAL HISTORY: CHEST PAIN COMPARISON: Portable August 2017 TECHNIQUE: AP portable chest image was obtained 02/23/2020 12:19 am . FINDINGS: No mass or consolidation. Interstitial pattern is similar to comparison. Heart and vascula ture are normal. No measurable pleural effusion and no pneumothorax. No acute bony abnormality seen. No acute aortic findings suspected. IMPRESSION: No acute cardiopulmonary process. No significant change from comparison.
[2020-02-23] MEDS ORDERED: HEPARIN 5000 UNIT/ML 1 ML VIAL SQ SCH (09:00)
--- NOTE | 2020-02-23 11:39 | RAD REPORT ---
EXAM DESCRIPTION: CT - Chest Angio - 02/23/2020 5:47 am CLINICAL HISTORY: DYSPNEA TECHNIQUE: Contiguous axial images obtained through the chest during angiographic phase following th e uneventful administration of IV contrast. Sagittal and coronal reformatted images were provided. WI P reformatted images were provided. This exam was performed according to our departmental dose-optimization program, which includes autom ated exposure control, adjustment of the mA and/or kV according to patient size and/or use of iterati ve reconstruction technique. COMPARISON: No prior exams provided for comparison. FINDINGS: Diagnostic quality: There is good opacification of the pulmonary arterial tree. Lungs: Minimal dependent atelectasis within the bilateral upper and lower lobes. Airways are patent. Pleura: No effusion. No pneumothorax. Heart and pericardium: The heart is mildly enlarged. No pericardial effusion. Mediastinum and mitch: No pathologically enlarged lymph nodes. Lower neck and chest wall: Unremarkable Vessels: No pulmonary arterial filling defects. No thoracic aortic aneurysm. Upper abdomen: Unremarkable Bones: Intact. Dorsal column stimulator leads terminate at the T7-T8 level. IMPRESSION: 1. No pulmonary embolic disease. 2. No focal infiltrate. Electronically signed by: María Babb MD 02/23/2020 2:57 AM CDT Due to temporary technical issues with the PACS/Fluency reporting system, reports are being signed by the in house radiologist without review as a courtesy to ensure prompt reporting. The interpreting r adiologist is fully responsible for the content of the report.
--- NOTE | 2020-02-23 12:16 | EKG ---
Test Date: 2020-02-22 Test Time: 23:52:33 Technology Integration Specialist: CHUCK MEASUREMENT RESULTS: Intervals: Rate: 79 OK: 134 QRSD: 82 QT: 360 QTc: 412 [place]: P: 52 OK: 134 QRS: 72 T: 1 INTERPRETIVE STATEMENTS: Normal sinus rhythm Nonspecific T wave abnormality Abnormal ECG Compared to ECG 08/26/2017 01:15:33 T-wave abnormality now present ST (T wave) deviation no longer present Electronically Signed On 02-23-20 12:15:03 CDT by Alvin Chua
== END 2020-02-23 06:45 | disposition left against medical advice (07) ==
LOC: ER 23:41 → ERHOLD 02-23 04:03 → 4TH 02-23 04:28
PROVIDERS: ADMIT Hospitalist; ATTEND Hospitalist
DX: I20.9 Angina pectoris, unspecified (principal); N17.9 Acute kidney failure, unspecified; I10 Essential (primary) hypertension; R56.9 Unspecified convulsions; F17.200 Nicotine dependence, unspecified, uncomplicated; Z71.6 Tobacco abuse counseling; Z96.82 Presence of neurostimulator; Z88.8 Allergy status to other drugs, medicaments and biological substances; Z53.29 Procedure and treatment not carried out because of patient's decision for other reasons
CPT/HCPCS: 93005; 85025; 80048; 36415; 83721; 83735; 85610; 80061; 80076; 83036; 84484 ×2; 83880; 71275; 71045; 96375; 96374; 99285; Q9967; J2405; G0378 ×2